=== PATIENT | male | born 1995 | race Caucasian/White ===

== ENCOUNTER → 2020-07-17 06:57 | Outpatient (CLI) | payer OTHER, SELFPAY ==
[2020-07-17 23:52] LABS: SARS-CoV-2 RNA PCR Negative
== END ==
PROVIDERS: PCP Family Medicine; Visit Provider Physician Assistant
DX: Z20.822 Contact with and (suspected) exposure to COVID-19 (principal); R05 Cough
CPT/HCPCS: C9803; U0003; U0005